=== PATIENT | female | born 1965 | race Caucasian/White ===

== ENCOUNTER 2023-03-16 16:33 | Outpatient (OUT) | payer OTHER, SELFPAY ==
--- NOTE | 2023-03-16 | MM_ITS ---
Patient: MELIZA HDZ Exam Date: 03/16/2023 : 1965 Gender:F Ordering : DR Anil Fonseca D.O. Admission #: [id number] Family : Order #: [id number] CLICK HERE TO VIEW EXAM RADIOLOGY REPORT PROCEDURE: MM TOMOSYNTHESIS SCREENING BI COMPARISON: MG MAMM SCREEN BONNIE W CAD, 12/05/2017. INDICATIONS: screening for malignant neoplasm Calculator Name NCI Breast Cancer Risk Assessment Tool 5 Year Breast Cancer Risk 1.10% Lifetime Breast Cancer Risk 7.10% Personal Breast Cancer No Personal Ovarian Cancer No Treatments None Family Cancers Grandfather-maternal with colon cancer at age 80; Grandmother-maternal with colon cancer at age 79. LOCATION: [facility] BREAST COMPOSITION: Almost entirely fatty. FINDINGS: DIAGNOSTIC CATEGORY 1--NEGATIVE. RIGHT BREAST: No significant suspicious finding. No significant change has occurred. LEFT BREAST: No significant suspicious finding. No significant change has occurred. RECOMMENDATIONS: ROUTINE MAMMOGRAM AND CLINICAL EVALUATION IN 12 MONTHS. PLEASE NOTE: A NORMAL MAMMOGRAM DOES NOT EXCLUDE THE POSSIBILITY OF BREAST CANCER. A CLINICALLY SUSPICIOUS PALPABLE LUMP SHOULD BE BIOPSIED. Dictated by: Arley Suarez M.D. on 03/20/2023 at 14:20 Approved by: Arley Suarez M.D. on 03/20/2023 at 14:33
== END 2023-03-16 16:34 | disposition home or self-care (01) ==
LOC: MAMMO 16:33
PROVIDERS: PCP Internal Medicine; Visit Provider Internal Medicine
DX: Z12.31 Encounter for screening mammogram for malignant neoplasm of breast (principal); Z80.0 Family history of malignant neoplasm of digestive organs
CPT/HCPCS: 77063; 77067

== ENCOUNTER 2024-12-24 06:57 | Outpatient (OUT) | payer OTHER, SELFPAY ==
--- OUTSIDE RECORDS SUMMARY | 2024-12-24 07:00 | XMS_ITS | CCD ---
Author Organization [facility] Inform ion Partnership [facility] Care Team Providers Care Sap Bpc Developer Name Role Phone Nohemi Serra Unavailable Reinaldo Bellamy Unavailable DR NOHEMI SERRA Admitting Unavailable RAYMUNDO, DR CALERO Primary Care Unavailable HANS, DR YASMANY Bull Consulting Unavailable DR NOHEMI SERRA Attending Unavailable JACQUI, DR NOHEMI Quintero Consulting Unavailable SPENSER PARRISH Consulting Unavailable Anil Fonseca Unavailable Anil Fonseca DO Primary Care Provider [phone] Anil Fonseca DO Attending Provider Medications Current Medications Medication Drug Class(es) Dates Sig (Normalized) Sig (Original) [id number] 200 actuat albuterol 0.09 mg/actuat metered dose inhaler (5 sources) beta2-Adrenergic Agonist Start: 08-09-2022 take 2 puff(s) by inhalation every four hours as needed Albuterol Sulfate HFA 108 (90 Base) MCG/ACT 2 puff Inhalation every 4 hrs prn Jul, Active Start: 08-09-2022 take 2 puff(s) by in halation every four hours as needed Albuterol Sulfate HFA 108 (90 Base) MCG/ACT 2 puff Inhalation every 4 hrs prn Jul, Active glucosamine 1000 mg oral tablet (1 source) Start: 03-03-2023 take 1 tablet by mouth once daily Glucosamine Sulfate 1000 MG 1 tablet with a meal Orally Once a day for 30 days Feb, Active Completed/Discontinued Medications Medication Drug Class(es) Dates Sig (Normalized) Sig (Original) naproxen 500 mg oral tablet (5 sources) Nonsteroidal Anti-inflammatory Drug Start: 07-25-2019 take 1 tablet by mouth every twelve hours at mealtime as needed Naproxen 500 MG 1 tablet with food or milk as needed Orally every 12 hrs for 10 days Jul, Not-Taking Problems Active Problems Problem Classification Problem Date Documented Date Episodic/Chronic Osteoarthritis (6 sources) Osteoarthritis of right knee joint; Translations: [Unilateral primary osteoarthritis, right knee] Onset: 08-13-2022 Chronic Other lower respiratory disease (1 source) Chronic cough; Translations: [CHRONIC COUGH] Onset: 08-13-2022 Episodic Other nervous system disorders (5 sources) Chronic pain; Translations: [Other chronic pain] Chronic Other nervous system disorders (3 sources) Other chronic pain Chronic Other non-traumatic joint disorders (3 sources) Pain in right knee; Translations: [PAIN IN RIGHT KNEE] Onset: 08-13-2022 Episodic Other nutritional; endocrine; and metabolic disorders (3 sources) Severe obesity; Translations: [Morbid (severe) obesity due to excess calories] Chronic Other nutritional; endocrine; and metabolic disorders (3 sources) Body mass index 40+ - severely obese; Translations: [Body mass index (BMI) 40.0-44.9, adult] Chronic Other nutritional; endocrine; and metabolic disorders (2 sources) Morbid (severe) obesity due to excess calories Chronic Other nutritional; endocrine; and metabolic disorders (2 sources) Body mass index (BMI) 40.0-44.9, adult Chronic Other nutritional; endocrine; and metabolic disorders (2 sources) Obesity; Translations: [Obesity, unspecified] 11-23-2024 Chronic Other screening for suspected conditions (not mental disorders or infectious disease) (5 sources) Encounter for screening mammogram for malignant neoplasm of breast; Translations: [Encounter for screening for malignant neoplasm of colon] Episodic Past or Other Problems Problem Classification Problem Date Documented Da te Episodic/Chronic Unclassified (1 source) Chronic cough R05.3 Results Test Name Value Interpretation Reference Range Facil ity CBC AUTO DIFFon 08-05-2022 BASO # 0.1 103/ul Normal 0.0-0.1 [facility] Comment on above: Performed By: #### C BC #### [facility] [address] [place] [address] Dr. Airam Valdez Basophils/100 WBC (Bld) 1.0 % Normal 0.2-2.0 [facility] Comment on above: Performed By: #### C BC #### [facility] [address] [place] [address] Dr. Airam Valdez EO # 0.3 103/ul Normal 0.0-0.7 [facility] Comment on above: Performed By: #### C BC #### [facility] [address] [place] [address] Dr. Airam Valdez Eosinophils/100 WBC (Bld) 4.3 % Normal 0.9-7.0 [facility] Comment on above: Performed By: #### C BC #### [facility] [address] [place] [address] Dr. Airam Valdez Erythrocyte distribution width (RBC) [Ratio] 13.7 % Normal 11.0-15.0 [facility] Comment on above: Performed By: #### C BC #### [facility] [address] [place] [address] Dr. Airam Valdez Hematocrit (Bld) [Volume fraction] 42.8 % Normal 36.0-48.0 [facility] Comment on above: Performed By: #### C BC #### [facility] [address] [place] [address] Dr. Airam Valdez Hemoglobin (Bld) [Mass/Vol] 14.1 g/dL Normal 12.0-16.0 [facility] Comment on above: Performed By: #### C BC #### [facility] [address] [place] [address] Dr. Airam Valdez IG # 0.01 10e3/ul Normal 0.00-0.03 [facility] Comment on above: Performed By: #### C BC #### [facility] [address] [place] [address] Dr. Airam Valdez IG % 0.2 % Normal 0.0-0.5 [facility] Comment on above: Performed By: #### C BC #### [facility] [address] [place] [address] Dr. Airam Valdez LYMPH # 1.8 103/ul Normal 1.2-3.8 [facility] Comment on above: Performed By: #### C BC #### [facility] [address] [place] [address] Dr. Airam Valdez Lymphocytes/100 WBC (Bld) 29.7 % Normal 20.5-60.0 [facility] Comment on above: Performed By: #### C BC #### [facility] [address] [place] [address] Dr. Airam Valdez MANUAL DIFF REQ NO Normal [facility] Comment on above: Performed By: #### C BC #### [facility] [address] [place] [address] Dr. Airam Valdez MCH (RBC) [Entitic mass] 29.5 pg Normal 26.7-34.0 [facility] Comment on above: Performed By: #### C BC #### [facility] [address] [place] [address] Dr. Airam Valdez MCHC (RBC) [Mass/Vol] 32.9 g/dL Normal 29.9-35.2 [facility] Comment on above: Performed By: #### C BC #### [facility] [address] [place] [address] Dr. Airam Valdez MCV (RBC) [Entitic vol] 89.5 fL Normal 81.0-99.0 [facility] Comment on above: Performed By: #### C BC #### [facility] [address] [place] [address] Dr. Airam Valdez MONO # 0.4 103/ul Normal 0.3-0.8 [facility] Comment on above: Performed By: #### C BC #### [facility] [address] [place] [address] Dr. Airam Valdez Monocytes/100 WBC (Bld) 6.5 % Normal 1.7-12.0 [facility] Comment on above: Performed By: #### C BC #### [facility] [address] [place] [address] Dr. Airam Valdez NEUT # 3.5 103/ul Normal 1.4-6.5 [facility] Comment on above: Performed By: #### C BC #### [facility] [address] [place] [address] Dr. Airam Valdez Neutrophils/100 WBC (Bld) 58.3 % Normal 43.0-75.0 [facility] Comment on above: Performed By: #### C BC #### [facility] [address] [address] [address] Airam Valdez Platelet mean volume (Bld) [Entitic vol] 10.1 fL Normal 9.5-13.5 [facility] Comment on above: Performed By: #### C BC #### [facility] [address] [address] [address] Airam Valdez PLT 287 103/ul Normal 150-450 [facility] Comment on above: Performed By: #### C BC #### [facility] [address] [place] [address] Dr. Airam Valdez RBC 4.78 106/ul Normal 4.20-5.40 [facility] Comment on above: Performed By: #### C BC #### [facility] [address] [place] [address] Dr. Airam Valdez WBC 6.0 103/ul Normal 4.0-11.0 [facility] Comment on above: Performed By: #### C BC #### [facility] [address] [place] [address] Dr. Airam Valdez LIPID PROFILEon 08-05-2022 CHOL-HDL RATIO NORM SEE BELOW Normal [facility] Comment on above: Result Comment: 3.3 - 4.4 LOW RISK 4.4 - 7.1 AVERAGE RISK 7.1 - 11.0 MODERATE RISK >11.0 HIGH RISK Performed By: #### L IPID, CMP #### [facility] [address] [place] [address] Dr. Airam Valdez Cholesterol [Mass/Vol] 242 mg/dL Critically high <=200 [facility] Comment on above: Performed By: #### L IPID, CMP #### [facility] [address] [place] [address] Dr. Airam Valdez Cholesterol in HDL [Mass/Vol] 72 mg/dL Critically high 40-60 [facility] Comment on above: Performed By: #### L IPID, CMP #### [facility] [address] [place] [address] Dr. Airam Valdez Cholesterol in LDL [Mass/Vol] 155.2 mg/dL Normal [facility] Comment on above: Performed By: #### L IPID, CMP #### [facility] [address] [address] [address] Airam Valdez Cholesterol.total/ Cholesterol in HDL [Mass ratio] 3.4 {ratio} Normal [facility] Comment on above: Performed By: #### L IPID, CMP #### [facility] [address] [address] [address] Airam Valdez HDL NORMAL > or = 60 mg/dl - LO W CARDIOVASCULAR RISK <40 mg/dl - HIGH CARDIOVASCULAR RISK Normal [facility] Comment on above: Performed By: #### L IPID, CMP #### [facility] [address] [address] [address] Airam Valdez LDL CALC NORMAL SEE BELOW Normal [facility] Comment on above: Result Comment: <100 mg/dl OPTIMAL 100 - 129 mg/dl NEAR OR ABOVE OPTIMAL 130 - 159 mg/dl BORDERLINE HIGH 160 - 189 mg/dl HIGH >190 mg/dl VERY HIGH Performed By: #### L IPID, CMP #### [facility] [address] [address] [address] Airam Valdez Triglyceride [Mass/Vol] 74 mg/dL Normal <=150 [facility] Comment on above: Performed By: #### L IPID, CMP #### [facility] [address] [address] [address] Airam Valdez VLDL CALC 14.8 mg/dL Normal [facility] Comment on above: Performed By: #### L IPID, CMP #### [facility] [address] [address] [address] Airam Valdez PROF 14(COMP METB)on 023 Albumin [Mass/Vol] 4.0 g/dL Normal 3.4-5.0 [facility] Comment on above: Performed By: #### L IPID, CMP #### [facility] [address] [address] [address] Airam Valdez Albumin/Globulin [Mass ratio] 1.1 {ratio} Normal [facility] Comment on above: Performed By: #### L IPID, CMP #### [facility] [address] [address] [address] Airam Valdez ALP [Catalytic activity/Vol] 73 U/L Normal 46-116 [facility] Comment on above: Performed By: #### L IPID, CMP #### [facility] [address] [address] [address] Airam Valdez ALT [Catalytic activity/Vol] 33 U/L Normal 14-59 [facility] Comment on above: Performed By: #### L IPID, CMP #### [facility] [address] [address] [address] Airam Valdez Anion gap [Moles/Vol] 13.6 mmol/L Normal [facility] Comment on above: Performed By: #### L IPID, CMP #### [facility] [address] [address] [address] Airam Valdez AST [Catalytic activity/Vol] 23 U/L Normal 15-37 [facility] Comment on above: Performed By: #### L IPID, CMP #### [facility] [address] [address] [address] Airam Valdez Bilirubin [Mass/Vol] 0.5 mg/dL Normal 0.2-1.0 [facility] Comment on above: Performed By: #### L IPID, CMP #### [facility] [address] [address] [address] Airam Valdez Calcium [Mass/Vol] 9.6 mg/dL Normal 8.5-10.1 [facility] Comment on above: Performed By: #### L IPID, CMP #### [facility] [address] [address] [address] Airam Valdez Chloride [Moles/Vol] 104 mmol/L Normal 98-107 [facility] Comment on above: Performed By: #### L IPID, CMP #### [facility] [address] [address] [address] Airam Valdez CO2 [Moles/Vol] 27.7 mmol/L Normal 21.0-32.0 [facility] Comment on above: Performed By: #### L IPID, CMP #### [facility] [address] [address] [address] Airam Valdez Creatinine [Mass/Vol] 0.83 mg/dL Normal 0.55-1.02 [facility] Comment on above: Performed By: #### L IPID, CMP #### [facility] [address] [address] [address] Airam Valdez EGFR-AF BELARUSIAN >60 Normal >=60 [facility] Comment on above: Performed By: #### L IPID, CMP #### [facility] [address] [address] [address] Airam Valdez EGFR-NON AF BELARUSIAN >60 Normal >=60 [facility] Comment on above: Performed By: #### L IPID, CMP #### [facility] [address] [address] [address] Airam Valdez Globulin (S) [Mass/Vol] 3.8 g/dL Normal [facility] Comment on above: Performed By: #### L IPID, CMP #### [facility] [address] [address] [address] Airam Valdez Glucose [Mass/Vol] 101 mg/dL Normal 74-106 [facility] Comment on above: Performed By: #### L IPID, CMP #### [facility] [address] [address] [address] Airam Valdez Potassium [Moles/Vol] 4.3 mmol/L Normal 3.5-5.1 [facility] Comment on above: Performed By: #### L IPID, CMP #### [facility] [address] [address] [address] Airam Valdez Protein [Mass/Vol] 7.8 g/dL Normal 6.4-8.2 [facility] Comment on above: Performed By: #### L IPID, CMP #### [facility] [address] [address] [address] Airam Valdez Sodium [Moles/Vol] 141 mmol/L Normal 136-145 [facility] Comment on above: Performed By: #### L IPID, CMP #### [facility] [address] [address] [address] Airam Valdez Urea nitrogen [Mass/Vol] 15.0 mg/dL Normal 7.0-18.0 [facility] Comment on above: Performed By: #### L IPID, CMP #### [facility] [address] [id number] Airam Valdez Urea nitrogen/Creatinin e [Mass ratio] 18.1 mg/mg Normal [facility] Comment on above: Performed By: #### L IPID, CMP #### [facility] [address] Airam Valdez XR CHEST 2 Von 08-05-2022 XR CHEST 2 V EXAM: XR CHEST 2 V HISTORY: Chronic cough COMPARISON: None. TECHNIQUE: PA and lateral views of the chest. FINDINGS: The cardiomediastinal silhouette is normal. No focal consolidation is identified. There is no pneumothorax. No pleural effusion is noted. The osseous structures are intact. IMPRESSION: No acute cardiopulmonary process. Electronically authenticated by: SPENSER PARRISH Date: 2022-08-05 09:52 Normal [facility] Vital Signs Date Time Vital Sign Value Performing Clinician Facility 11-26-2024 14:05-0400 Body height 165.1 cm [employer] DO Work Phone: [facility] 11-26-2024 14:05-0400 Body mass index (BMI) [Ratio] 38.2 kg/m2 Anil Ball DO Work Phone: [facility] 11-26-2024 14:05-0400 Body weight 104.38 kg Anil Ball DO Work Phone: [facility] 11-26-2024 14:05-0400 Diastolic blood pressure 86 mm[Hg] Anil Ball DO Work Phone: [facility] 11-26-2024 14:05-0400 Heart rate 94 /min Anil Ball DO Work Phone: [facility] 11-26-2024 14:05-0400 Respiratory rate 12 /min Anil Ball DO Work Phone: [facility] 11-26-2024 14:05-0400 Systolic blood pressure 133 mm[Hg] Anil Ball DO Work Phone: [facility] 03-03-2023 10:00-0400 Body height 161.29 cm Anil Ball Other [facility] [employer] Other 03-03-2023 10:00-0400 Body mass index (BMI) [Ratio] 40.38 kg/m2 Anil Ball Other [employer] Other 03-03-2023 10:00-0400 Body weight 105.05 kg Anil Ball Other [facility] Other 03-03-2023 10:00-0400 Diastolic blood pressure 88 mm[Hg] Anil Ball Other [facility] Other 03-03-2023 10:00-0400 Respiratory rate 12 /min Anil Ball Other [facility] Other 03-03-2023 10:00-0400 Systolic blood pressure 135 mm[Hg] Anil Ball Other [facility] Other 08-26-2022 09:00-0400 Body height 161.29 cm Reinaldo Bellamy Other [facility] Other 08-26-2022 09:00-0400 Body mass index (BMI) [Ratio] 40.1 kg/m2 Reinaldo Bellamy Other [facility] Other 08-26-2022 09:00-0400 Body weight 104.33 kg Reinaldo Bellamy Other [facility] Other 08-05-2022 09:30-0400 Body height 161.29 cm Nohemi Serra Other [facility] Other 08-05-2022 09:30-0400 Body mass index (BMI) [Ratio] 39.58 kg/m2 Nohemi Serra Other [facility] Other 08-05-2022 09:30-0400 Body weight 102.97 kg Nohemi Serra Other [facility] Other 08-05-2022 09:30-0400 Diastolic blood pressure 88 mm[Hg] Nohemi Serra Other [facility] Other 08-05-2022 09:30-0400 SaO2% (BldA) [Mass fraction] 97 % Nohemi Serra Other [facility] Other 08-05-2022 09:30-0400 Systolic blood pressure 128 mm[Hg] Nohemi Serra Other [facility] Other Encounters Encounter Date Encounter Type Care Provider Facility Start: 11-26-2024 End: 11-26-2024 ambulatory Anil Fonseca DO Work Phone: [facility] Work Phone: Start: 11-26-2024 End: 11-26-2024 Patient encounter procedure Anil Fonseca -[facility] Work Phone: Start: 11-26-2024 End: 11-26-2024 Patient encounter status Anil Fonseca [facility] Start: 11-23-2024 Patient encounter status Anil Fonseca DO Work Phone: [facility] Start: 03-03-2023 End: 03-03-2023 ambulatory Anil Fonseca Other [facility] [employer] Other Start: 03-03-2023 Office outpatient vi sit 15 minutes Anil Raymundo L[facility] Start: 09-07-2022 End: 09-07-2022 ambulatory Reinaldo Bellamy Other [facility] Other Start: 09-07-2022 Telephone encounter Reinaldo KLINE [facility] [employer] Start: 08-26-2022 End: 08-26-2022 ambulatory Reinaldo Bellamy Other [facility] Other Start: 08-26-2022 Office outpatient ne w 30 minutes Reinaldo Bellamy [facility] Start: 08-13-2022 Encounter for genera l adult medical examination without abnormal findings DR NOHEMI SERRA [facility] Start: 08-09-2022 End: 08-09-2022 ambulatory Nohemi Serra Other [facility] Other Start: 08-09-2022 Telephone encounter Nohemi Serra [facility] Start: 08-05-2022 End: 08-06-2022 Encounter for general adult medical examination without abnormal findings Nohemi Serra [facility] Start: 08-05-2022 Initial preventive medicine new patient 40-64yrs Nohemi Serra [facility] Start: 08-05-2022 End: 08-06-[address] NOHEMI SERRA [facility] [employer] Other Payers Date Payer Category Payer Unknown [id number] 1958 Unknown [id number] Unknown [id number] Social History Date Type Detail Facility Unknown if ever smoked [facility] Other Sex Assigned At Sex Assigned At Bir th [facility] Other Tobacco smoking status NHIS Unknown if ever smoked [facility] Work Phone: Sex Female (finding) [facility] Start: 1965 Sex Assigned At Female [facility] Evaluation note 03-03-2023 Note Date & Type Note Facility 03-03-2023 Evaluation note Encounter Date Diagnosis Assessment Notes Feb, Primary osteoarthritis of right knee (ICD-10 - M17.11) Quad exercises, ice/heat and Tylenol Voltaren Gel as needed Bracing No improvement, PT, IA injection, Ortho Feb, Other chronic pain (ICD-10 - G89.29) Glucosamine/Ch ondroitin and Tylenol Weight loss Feb, Morbid (severe) obesity due to excess calories (ICD-10 - E66.01) This patient has been instructed on a low-fat, high-fiber diet. They are instructed to reduce calories, portion sizes and snacks. It is recommended that they exercise for 30 minutes, 3-5 times weekly. Feb, Body mass index [BMI] 40.0-44.9, adult (ICD-10 - Z68.41) Feb, Screening mammogram for breast cancer (ICD-10 - Z12.31) Instructed patient on monthly SBE and yearly mammograms. Feb, Other Healthy diet and exercise. Reviewed age-appropriat e preventive testing recommended. [facility] Other Evaluation note 08-26-2022 Note Date & Type Note Facility 08-26-2022 Evaluation note Encounter Date Diagnosis Assessment Notes Aug, Primary osteoarthritis of right knee (ICD-10 - M17.11) Leah presents with right knee DJD. At this juncture we have discussed the findings and diagnosis as well as personally reviewed appropriate imaging and performed interpretation of related testing and examination with the patient in office today. Prior medical notes from Dr. Yeager and history have been reviewed. Today we have discussed degenerative joint disease of the knee and its treatment. Imaging was discussed and explained to the patient. We discussed recommended conservative therapies including physical therapy, anti-inflammatory medications, and weight loss strategies. We also discussed other treatment options including cortisone injections, Visco supplementation injections which are options for treatment. I have laid out the course of knee DJD including the end-stage treatment of total joint arthroplasty. The patient recognizes and understands our options and goals and we will move forward with our treatment. Today we have initiated conservative treatment. I will see them back as needed. The patient has been involved in our cooperative treatment plan and agrees to move forward with treatment at this time. Recent imaging reviewed with patient today in office. The patient is suffering from degenerative arthritis involving the knee. We discussed the conservative treatment options which can be beneficial in relieving pain, including gentle non-impact motion exercise and non-steroidal anti-inflammat ory medication.We discussed use of a knee pad when gardening. Patient informed on use of Voltaren gel. Activity as tolerated. Aug, Morbid (severe) obesity due to excess calories (ICD-10 - E66.01) Today we discussed obesity. I have informed the patient the amount of stress it applies to our musculoskeletal system as well as the axial and appendicular skeleton. They understand how this can affect joint function as well as joint pain. We discussed the range of BMI and the patient's BMI of 40. We discussed weight loss strategies through increased physical activity as well as decrease caloric intake. We offered referral for bariatric services. Our discussion is limited to 5 minutes. Aug, Body mass index [BMI] 40.0-44.9, adult (ICD-10 - Z68.41) Aug, Other See orders for this visit as documented in the electronic medical record. [facility] Other Evaluation note 08-09-2022 Note Date & Type Note Facility 08-09-2022 Evaluation note Encounter Date Diagnosis Assessment Notes Jul, Other chronic pain (ICD-10 - G89.29) Jul, Pain in right knee (ICD-10 - M25.561) [facility] Other Clinical Note 08-05-2022 Note Date & Type Note Facility 08-05-2022 Note PROCEDURE: XR KNEE R T 4V or > COMPARISON: None. HISTORY: Pain of right knee joint FINDINGS: BONES:No acute fracture or dislocation. Mild marginal osteophyte formation of the medial compartment. SOFT TISSUES:Negative. No visible soft tissue swelling. EFFUSION:None visible. OTHER: Negative. IMPRESSION: Mild medial compartment osteoarthritis Electronically authenticated by: YASMANY MAXWELL Date: 2022-08-05 15:21 [facility] Evaluation note 08-05-2022 Note Date & Type Note Facility 08-05-2022 Evaluation note Encounter Date Diagnosis Assessment Notes Jul, Wellness examination (ICD-10 - Z00.00) general topics regarding health education were discussed in detail. All preventative issues were discussed including remaining a nonsmoker, colorectal screening, the importance of proper sleep for brain health maintenance, maintaining a heart-healthy balanced diet, recognizing and addressing signs of anxiety and depression, maintaining positive relationships with family and friends. Due for pap and pelvic test Jul, Other chronic pain (ICD-10 - G89.29) Jul, Pain in right knee (ICD-10 - M25.561) Will check xray and consider referral to ortho or PT after results are back Jul, Screening mammogram for breast cancer (ICD-10 - Z12.31) due for mamm Jul, Chronic cough (ICD-10 - R05.3) Check CXR. No history of asthma. Jul, Colon cancer screening (ICD-10 - Z12.11) Due for colonoscopy next year. [facility] Other Evaluation note Note Date & Type Note Facility Evaluation note No Information [facility] Other Evaluation note Note Date & Type Note Facility Evaluation note Diagnosis Onset Date Resolution Obesity acute November 26, 2024 1:58pm Screening for colon cancer acute November 26, 2024 1 :58pm Wellness examination acute November 26, 2024 1:58pm [facility] [employer] Work Phone: History general Narrative - Reported Note Date & Type Note Facility History general Narrative - Reported Type Surgical History tonsillectomy Surgical History COLONOSCOPY 2019 Hospitalization History SEE SURGICAL HX [facility] Other History general Narrative - Reported Note Date & Type Note Facility History general Narrative - Reported Type Medical History Osteoarthritis of right knee Surgical History tonsillectomy Surgical History COLONOSCOPY 2019 Hospitalization History SEE SURGICAL HX [facility] Other Reason for referral (narrative) Note Date & Type Note Facility Reason for referral (narrative) No reason for referral information available [facility] [employer] Work Phone: Reason for Referral Reason 08/26/22 [facility] - R knee pain - Xray and last OV note. Thank you. Diagnosis 1 Pain in right knee ( M25.561) Referral Organization [facility] [employer] Referring Provider First Name Nohemi Referring Provider Last Name Jacqui Referring Provider Specialty Family [facility] Referred Organization [facility] Referred Provider Reinaldo Bellamy Referred Address [address] [facility] [place] Referred Provider Specialty Orthopedic S urgery Referral Priority Routine Referral Appointment Date 2022-08-26 General Notes ZiaDaina bridges 12:47:45 PM >received today, sent p2p Summary Purpose Family History Relationship Condition Age at Onset Recorded Date/T jai father Diabetes mellitus Unknown mother Heart disease Unknown Hypertension Unknown Advance Directives Advance Directive Response Recorded Date/ Time Advance Directives No July 24 9:12pm Chief Complaint and Reason for Visit Chief Complaint Admit Date Wellness November 26, 2024 1:58p m Reason for Visit Admit Date Obesity November 26, 2024 1:58p m Screening for colon cancer November 26 1:58pm Wellness examination November 26, 2024 1:58 pm Additional Source Comments REASON FOR VISIT (unrecogniz ed section and content) general check uptest results Right Knee PainORTHO NOTEHURT RIGHT KNEE - COUPLE WEEKS AGO, Wellness exam INFORMATION SOURCE (unrecogn ized section and content) DATE CREATED AUTHOR 10/28/2022 [facility] Care Teams (unrecognized sec tion and content) Team Status: Active Member Role Status Dates Anil Fonseca DO Primary Care Provider Active Team Status: Inactive Member Role Status Dates Anil Fonseca DO Primary Care Provider Active Start: November 26, 2024 End: November 26, 2024 Anil Fonseca DO Attending Provider Active Sta rt: November 26, 2024 End: November 26, 2024 Goals (unrecognized section and content) Goals may be documented in a n alternate section FOR RECORDS PERTAINING TO PATIENTS WHO ARE OR HAVE BEEN ENROLLED IN A CHEMICAL DEPENDENCY/SUBSTANCEABUSE PROGRAM, SOME INFORMATION MAY BE OMITTED. This clinical summary was aggregated from multiple sources. Caution should be exercised in using it in the provision of clinical care. This summary normalizes information from multiple sources, and as a consequence, information in this document may materially change the coding, format and clinical context of patient data. In addition, data may be omitted in some cases. CLINICAL DECISIONS SHOULD BE BASED ON THE PRIMARY CLINICAL RECORDS. [facility] [employer] [facility]. provides no warranty or guarantee of the accuracy or completeness of information in this document.
[2024-12-24 07:17] LABS: Hematocrit 42.2 % (36.0-48.0); Hemoglobin 13.9 g/dL (12.0-16.0); Immature Granulocytes Abs Auto 0.01 10^3/uL (0.00-0.03); Immature Granulocytes Pct Auto 0.2 % (0.0-0.5); Lymphocytes Absolute Auto 1.7 10^3/uL (1.2-3.8); Mean Corpuscular HGB Conc 32.9 g/dL (29.9-35.2); Mean Corpuscular Hemoglobin 29.8 pg (26.7-34.0); Mean Corpuscular Volume 90.6 fL (81.0-99.0); Platelet Count 247 10^3/uL (150-450); Red Blood Count 4.66 10^6/uL (4.20-5.40); White Blood Count 4.9 10^3/uL (4.0-11.0)
[2024-12-24 07:54] LABS: Alanine Aminotransferase 27 U/L (14-59); Albumin Globulin Ratio 0.9; Albumin Level 3.6 g/dL (3.4-5.0); Alkaline Phosphatase 71 U/L (46-116); Anion Gap 11.1; Aspartate Amino Transferase 17 U/L (15-37); Blood Urea Nitrogen 16.0 mg/dL (7.0-18.0); Calcium 9.0 mg/dL (8.5-10.1); Carbon Dioxide 30.0 mmol/L (21.0-32.0); Chloride 104 mmol/L (98-107); Cholesterol 221 mg/dL (<=200); Estimated GFR (African America >60 (>=60 mL/min/1.73m^2); Estimated GFR (Non-African Ame >60 (>=60 mL/min/1.73m^2); Globulin 3.8 g/dL; Glucose 105 mg/dL (74-106); HDL Cholesterol 62 mg/dL (40-60); Potassium 4.1 mmol/L (3.5-5.1); Sodium 141 mmol/L (136-145); Total Protein 7.4 g/dL (6.4-8.2); Triglycerides 80 mg/dL (<=150); VLDL CHOLESTEROL 16.0 mg/dL
--- NOTE | 2024-12-24 12:52 | MM_ITS ---
Patient Name: MELIZA HDZ MR#: [id number] : 1965 Exam Date: 12/24/2024 Ordering Doctor: DR ABDIAS SOARES D.O. RADIOLOGY REPORT PROCEDURE: MM TOMOSYNTHESIS SCREENING BI COMPARISON: MM TOMOSYNTHESIS SCREENING BI, 03/16/2023. MG MAMM SCREEN BONNIE W CAD, 12/05/2017. INDICATIONS: Screening Calculator Name NCI Breast Cancer Risk Assessment Tool 5 Year Breast Cancer Risk 1.20% Lifetime Breast Cancer Risk 6.90% Personal Breast Cancer No Personal Ovarian Cancer No Treatments None Family Cancers Grandfather-maternal with colon cancer at age 80; Grandmother-maternal with colon cancer at age 79. LOCATION: [facility] BREAST COMPOSITION: The breasts are almost entirely fatty. FINDINGS: RIGHT BREAST: No significant suspicious finding. LEFT BREAST: No significant suspicious finding. DIAGNOSTIC CATEGORY 1--NEGATIVE. RECOMMENDATIONS: ROUTINE MAMMOGRAM AND CLINICAL EVALUATION IN 12 MONTHS. PLEASE NOTE: A NORMAL MAMMOGRAM DOES NOT EXCLUDE THE POSSIBILITY OF BREAST CANCER. A CLINICALLY SUSPICIOUS PALPABLE LUMP SHOULD BE BIOPSIED. Dictated by: Elia Vázquez MD on 12/24/2024 at 15:43 Approved by: Elia Vázquez MD on 12/24/2024 at 15:46
== END 2024-12-24 06:58 | disposition home or self-care (01) ==
LOC: MAMMO 06:58
PROVIDERS: PCP Internal Medicine; Visit Provider Internal Medicine
DX: Z12.31 Encounter for screening mammogram for malignant neoplasm of breast (principal); Z00.00 Encounter for general adult medical examination without abnormal findings; Z80.0 Family history of malignant neoplasm of digestive organs
CPT/HCPCS: 36415; 77063; 77067; 80053; 80061; 85025